=== PATIENT | female | born 1960 | race Caucasian/White ===

== ENCOUNTER → 2019-02-05 | Outpatient (CLI) | payer SELFPAY ==
[~2019-02-05] MED LIST: ESCI10; METH5; RISE5; TOLT2; TRAZ50; VENL75ER; ZOLP10
== END ==
LOC: LAB 16:20 → LAB SHORT 16:20
PROVIDERS: Student in an Organized Health Care Education/Training Program
DX: Z01.419 Encounter for gynecological examination (general) (routine) without abnormal findings (principal)
CPT/HCPCS: G0145

== ENCOUNTER 2021-04-21 05:54 | Day surgery (SDC) | payer SELFPAY ==
[~2021-04-21] VITALS: Ht 167.6 cm; Wt 79.1 kg
[~2021-04-21 05:54] MED LIST changes: +CALCIUM CIT 311 EACH PO; +COLACE100 MG PO; +DICLEGIS DR 101 EAC1 PO; +DYAZIDE 37.5-21 EACH PO; +Diflucan150 MG; +LEVSOD112 PO; +LORATADINE10 MG PO; +MIRALAX17 GM PO; +MORP15ER PO; +PROBIOTIC1 EA13 PO; +SENNA LAXATIVE8.6 MG PO; +Seroquel300 MG PO; +Venlafaxine HC225 MG PO; +Zanaflex2 M1 PO
--- NOTE | 2021-04-21 07:31 | NUR ---
BROUGHT INTO [facility] IN WHEEL CHAIR ADMISSION TO T STARTED. VSS History, Chart, Medications and Allergies reviewed before start of procedure.Lungs clear T/O to Auscultation. Patient confirms NPO status and agrees with scheduled surgery.
--- NOTE | 2021-04-21 11:19 | NUR ---
PATIENT ARRIVED FROM PACU TODAY 04/21/21 AT 1050. POD 0 RIGHT TOTAL HIP PATIENT IS ALERT AND ORIENTED X4. VS ARE WNL AND IS ON RA. PATIENT HAD A SPINAL DURING THE SURGERY AND CAN ONLY FEEL FROM HER KNEES UP AT THIS TIME AND DENIES PAIN. PATIENT IS ABLE TO WIGGLE FINGERS AND TOES WHEN ASKED. RIGHT HIP HAS 3 GAUZE AND FOAM TAPE THAT ARE C/D/I. POLAR PACK IS IN PLACE. PATIENT HAS AT BEDSIDE. CALL LIGHT WITHIN REACH.
--- NOTE | 2021-04-21 14:09 | NUR ---
spoke with [facility] regarding levothyroxine prescription. the order is for 88 mcg daily.
--- NOTE | 2021-04-21 15:57 | NUR ---
SHIFT SUMMARY: POD 0 RIGHT TOTAL HIP ANTERIOR PATIENT IS ALERT AND ORIENTED X4. VS ARE WNL AND IS ON RA. PAIN IS MANAGED WITH PO PAIN MEDS, TORADOL, AND TYLENOL. SHE DID HAVE A SPINAL DURING SURGERY BUT HAS FULL SENSATION NOW. DENIES NUMBNESS AND TINGLING. SHE IS ABLE TO MOVE FINGERS AND TOES. THE 3 GAUZE AND FOAM TAPE ON THE RIGHT HIP ARE C/D/I. PATIENT IS TOLERATING PO, VOIDING, AND IS ABLE TO AMBULATE THE HALLWAY WITH FWW AND GAIT BELT. SHE IS CURRENTLY WORKING WITH THERAPY. THE PLAN IS TO DISCHARGE HOME TOMORROW IF PHYSICAL THERAPY CLEARS HER TOMORROW.
--- NOTE | 2021-04-22 04:42 | NUR ---
SHIFT SUMMARY PT A/OX4, VSS. COMFORTABLE THROUGHOUT THE NIGHT WITH ORDERED PAIN MEDICATIONS. SURGICAL DRESSING TO R HIP C/D/I. PT HAVING NO DIFFICULTY WALKING WITH WALKER. VOIDING WITH NO ISSUES. S/L PER ORDER.
[2021-04-22 06:08] LABS: Anion Gap 7 mmol/L (6-16); Blood Urea Nitrogen 20 mg/dL (8-24); Bun/Creatinine Ratio 23.1 (12.0-20.0); CO2, Blood 28 mmol/L (21-32); Calcium, Blood 8.9 mg/dL (8.5-10.1); Chloride, Blood 105 mmol/L (98-108); Creatinine, Blood 0.87 mg/dL (0.40-1.00); Glomerular Filtration Rate >60 (60-); Glucose, Blood 103 mg/dL (70-99); Potassium, Blood 4.4 mmol/L (3.5-5.5); Sodium, Blood 140 mmol/L (136-145)
[2021-04-22 06:56] LABS: BASOPHILS ABSOLUTE AUTO 0.02 K/mm3 (0.00-0.23); BASOPHILS PERCENT AUTO 0 % (0-2); EOSINOPHILS ABSOLUTE AUTO 0.01 K/mm3 (0.00-0.68); EOSINOPHILS PERCENT AUTO 0 % (0-6); Hematocrit 33.1 % (33.0-51.0); Hemoglobin 10.6 g/dL (11.5-16.0); IMMATURE GRAN ABSOLUTE AUTO 0.02 K/mm3 (0.00-0.10); IMMATURE GRAN PERCENT AUTO 0 % (0-1); LYMPHOCYTES ABSOLUTE AUTO 1.09 K/mm3 (0.84-5.20); LYMPHOCYTES PERCENT AUTO 13 % (21-46); MONOCYTES PERCENT AUTO 12 % (4-13); Mean Corpuscular HGB 29.4 pg (26.0-34.0); Mean Corpuscular Volume 92 fL (80-100); Mean Platelet Volume 10.1 fL (9.1-12.4); NEUTROPHILS ABSOLUTE AUTO 6.45 K/mm3 (1.96-9.15); NEUTROPHILS PERCENT AUTO 75 % (41-73); Platelet Count 256 K/mm3 (150-400); RDW Coefficient Variation 14.7 % (11.7-14.2); RDW Standard Deviation 49.7 fL (35.1-46.3); Red Blood Cell Count 3.61 M/mm3 (3.80-5.20); White Blood Cell Count 8.59 K/mm3 (4.00-11.30)
[2021-04-22] MEDS ORDERED: ASPI81CH PO (09:37)
[2021-04-22] MEDS ORDERED: CLIN150 PO (09:39)
[2021-04-22] MEDS ORDERED: PROMETHAZINE12.5 M1 PO (09:41)
--- NOTE | 2021-04-22 10:26 | NUR ---
1020 DISCHARGED TO HOME WITH . POLAR PACK AND DRESSING SUPPLIES PROVIDED TO PATIENT. PT REPORTS PAIN IS WELL CONTROLLED, DENIES NAUSEA. PT AMBULATING WITH WALKER, VOIDING CLEAR YELLOW URINE. SALOME REGULAR DIET WITHOUT NAUSE. PT VERBALIZES UNDERSTANDING OF DISCHARGE INSTRUCTIONS
== END 2021-04-22 10:20 | disposition home or self-care (01) ==
LOC: ORSCMMR 05:54 → SURS 10:48 → ORSCMMR 16:24
PROVIDERS: Orthopaedic Surgery
PROC: 8E0YXBZ Computer Assisted Procedure of Lower Extremity (ICD-10-PCS; principal; 2021-04-21 07:30)
PROC: 0SR90JA Replacement of Right Hip Joint with Synthetic Substitute, Uncemented, Open Approach (ICD-10-PCS; principal; 2021-04-21 07:30)
DX: M16.11 Unilateral primary osteoarthritis, right hip (principal); I10 Essential (primary) hypertension; E03.9 Hypothyroidism, unspecified; F32.A Depression, unspecified; Z79.899 Other long term (current) drug therapy
CPT/HCPCS: 36415; 72170; 80048; 83735; 85025; 97110; 97116; 97162; 97165; 97535; A9270; C1713; C1776; J0171; J0735; J1100; J1885; J2250; J2370; J2405; J2704; J2795; J3010; J3370; J7120

== ENCOUNTER → 2024-09-11 | Outpatient (CLI) | payer SELFPAY ==
[~2024-09-11] MED LIST changes: +ASPI81CH PO; +CLIN150 PO; +PROMETHAZINE12.5 M1 PO
[2024-09-17 11:46] LABS: HPV HIGH RISK BY TMA Not Detected; HPV SOURCE Cervical
== END ==
LOC: LAB SHORT 08:50 → LAB 08:50
PROVIDERS: Family Medicine
DX: Z01.419 Encounter for gynecological examination (general) (routine) without abnormal findings (principal)
CPT/HCPCS: 87624; G0123